=== PATIENT | female | born 1975 | race Asian ===

== ENCOUNTER 2020-07-15 07:04 | Inpatient (IN) | payer OTHER ==
[~2020-07-15] VITALS: Ht 160 cm; Wt 63.5 kg
[2020-07-15] MEDS ORDERED: methylPREDNISolone SOD SUCC 125 MG/2 ML VL ONE (08:07)
[2020-07-15] MEDS ORDERED: methylPREDNISolone SOD SUCC 125 MG/2 ML VL IV ONE (08:15)
[2020-07-15 08:46] LABS: Basophils # (auto) 0.1 10 ^3/uL (0-0.2); Basophils % (auto) 0.7 % (0.0-2.0); Eosinophils # (auto) 0.9 10 ^3/uL (0-0.8); Hematocrit 44.7 % (36.0-46.0); Hemoglobin 15.2 g/dL (12.2-16.2); Lymphocytes # (auto) 1.6 10 ^3/uL (0.4-5.4); Mean Corpuscular Hemoglobin 30.1 pg (28.0-32.0); Mean Corpuscular Volume 88.5 fL (80.0-100.0); Monocytes # (auto) 0.8 10 ^3/uL (0-1.3); Monocytes % (auto) 5.8 % (0.0-12.0); Neutrophils # (auto) 9.8 10 ^3/uL (1.6-8.6); Neutrophils % (auto) 74.5 % (37.0-80.0); Nucleated Red Blood Cells % 0.2 %; Platelet Count (auto) 366 10^3/uL (140-450); Red Blood Cells 5.05 10^6/uL (4.0-5.20); Red Cell Distribution Width 12.8 % (11.8-14.3); White Blood Cell 13.2 10^3/uL (4.4-10.8)
[2020-07-15 08:59] LABS: Albumin 4.2 g/dL (3.4-5.0); Calcium 9.3 mg/dL (8.5-10.1); Potassium 3.8 mmol/L (3.5-5.1)
[2020-07-15 09:03] LABS: Bilirubin, Total 0.6 mg/dL (0.2-1.0); Total Protein 9.3 g/dL (6.4-8.2)
[2020-07-15] MEDS ORDERED: ALBUTEROL SULF 2.5 MG/0.5ML(0.5%) NEB SOLN NEB ONE (10:00)
[2020-07-15] MEDS ORDERED: SODIUM CHLORIDE 0.9% 1,000 ML IV ONE ×2 (10:00→13:15)
[2020-07-15] MEDS ORDERED: IPRATROPIUM BROM 0.5 MG/2.5ML INH SOL NEB ONE (10:00)
[2020-07-15] MEDS ORDERED: MORPHINE SULF INJ 2 MG/ML SYRINGE 1ML IV PRN ×2 (13:15)
[2020-07-15] MEDS ORDERED: ACETAMINOPHEN 500 MG TAB PO PRN (13:15)
[2020-07-15] MEDS ORDERED: HYDROcodone-ACET 5/325MG TAB PO PRN (13:15)
[2020-07-15] MEDS ORDERED: ONDANSETRON HCL 4 MG/2 ML VIAL IV PRN (13:15)
[2020-07-15] MEDS ORDERED: NITROGLYCERIN 0.4 MG SL TAB SL PRN (13:15)
[2020-07-15] MEDS: AZITHROMYCIN 500MG/ 250ML 250 ML IV SCH (13:42)
[2020-07-15] MEDS: ALBUTEROL SULF 2.5 MG/0.5ML(0.5%) NEB SOLN NEB SCH ×2 (14:00→20:56)
[2020-07-15] MEDS: IPRATROPIUM BROM 0.5 MG/2.5ML INH SOL NEB SCH ×2 (14:00→20:56)
[2020-07-15 16:00] VITALS: BP 126/69
[2020-07-15 16:30] VITALS: BP 126/69
--- NOTE | 2020-07-15 16:39 | NUR ---
Telemetry admit from ER SHAMEKA DEGROOT admitted to Telemetry unit after SBAR received. Patient oriented to OG CRAIG, RN primary RN, unit, room, bed, and unit policies regarding patient care and visiting hours. Patient now on continuous telemetry monitoring, tele box # 17 and telemetry reading on arrival to unit is ST. Patient placed on bedside oxygen, weighed by bedscale and encouraged to call if they need something. All questions and concerns addressed, patient verbalized understanding. Note:
--- NOTE | 2020-07-15 17:49 | NUR ---
CALLED TO INFORM CHARGE NURSE KISHOR OF PATIENTS NEGATIVE COVID STATUS.
[2020-07-15] MEDS: BUDESONIDE (INHALATION) 0.5 MG/2 ML NEB NEB SCH (20:56)
[2020-07-15] MEDS: methylPREDNISolone SOD SUCC 125 MG/2 ML VL IV SCH (21:11)
[2020-07-15 22:00] VITALS: BP 114/65
--- NOTE | 2020-07-15 23:15 | NUR ---
pt transferred to Rm 288B. Endorsed care to AMANDEEP Stone.
--- NOTE | 2020-07-15 23:30 | NUR ---
Received patient from [facility] per wheelchair, alert/oriented, respirations even and unlabored at 3 Lpm/NC. Updated on POC, and to call as needed, patient verbalized understanding. Call light within reach, will continue to monitor
[2020-07-16] MEDS: IPRATROPIUM BROM 0.5 MG/2.5ML INH SOL NEB SCH ×6 (02:10→22:28)
[2020-07-16] MEDS: ALBUTEROL SULF 2.5 MG/0.5ML(0.5%) NEB SOLN NEB SCH ×3 (02:10→10:42)
[2020-07-16 05:00] VITALS: BP 101/57
--- NOTE | 2020-07-16 07:30 | NUR ---
Opening Shift Note Assumed care of patient, she is sitting up in bed eating breakfast. She is alert and oriented x 4. Respirations are even and non labored on 2L NC. No S/S of distress/SOB or pain. Bed is in the lowest and locked position with side rails up x 2 and call light within reach. Patient has not ambulated as of yet but she has normal strength in the hands and feet. Instructed on POC and to call for assist PRN, will continue to monitor for changes Q1hr and PRN.
[2020-07-16 09:23] VITALS: BP 107/63
[2020-07-16] MEDS: FAMOTIDINE 20 MG TAB PO SCH (10:21)
[2020-07-16] MEDS: methylPREDNISolone SOD SUCC 125 MG/2 ML VL IV SCH ×2 (10:21→21:51)
[2020-07-16] MEDS: AZITHROMYCIN 500MG/ 250ML 250 ML IV SCH (10:21)
[2020-07-16] MEDS: BUDESONIDE (INHALATION) 0.5 MG/2 ML NEB NEB SCH ×2 (10:42→22:28)
[2020-07-16] MEDS ORDERED: PATIENTS OWN MEDICATION (XOPENEX 0.63 MG) NEB SCH (11:45)
[2020-07-16] MEDS ORDERED: LORazepam 0.5 MG TAB PO PRN (11:45)
[2020-07-16 13:00] VITALS: BP 118/55
[2020-07-16] MEDS ORDERED: ENOXAPARIN SOD 40 MG/0.4 ML SYRINGE SC ONE (14:15)
[2020-07-16] MEDS ORDERED: IOHEXOL 350 MG/ML 100ML IJ ONE (15:04)
[2020-07-16] MEDS: LEVALBUTEROL HCL 1.25 MG/3 ML NEB NEB SCH ×3 (15:28→22:28)
--- NOTE | 2020-07-16 19:40 | NUR ---
Opening Shift Note Assumed care of patient, awake and alert. No S/S of distress/SOB or pain. Updated on POC and to call for assist PRN, patient verbalized understanding. Safety precaution in place, call light within reach, will continue to monitor for changes Q1hr and PRN.
[2020-07-16] MEDS: DOXYCYCLINE 100 MG TAB/CAP PO SCH (21:51)
[2020-07-16 23:59] VITALS: BP 106/49
[2020-07-17] MEDS: IPRATROPIUM BROM 0.5 MG/2.5ML INH SOL NEB SCH ×5 (01:44→14:21)
[2020-07-17] MEDS: LEVALBUTEROL HCL 1.25 MG/3 ML NEB NEB SCH ×5 (01:44→14:21)
[2020-07-17 05:31] VITALS: BP 110/61
[2020-07-17 06:17] LABS: Basophils # (auto) 0 10 ^3/uL (0-0.2); Eosinophils # (auto) 0 10 ^3/uL (0-0.8); Hematocrit 37.6 % (36.0-46.0); Lymphocytes % (auto) 7.1 % (10.0-50.0); Mean Corpuscular Hemoglobin 30.5 pg (28.0-32.0); Mean Corpuscular Hgb Conc. 34.5 g/dL (32.0-36.0); Mean Corpuscular Volume 88.4 fL (80.0-100.0); Monocytes # (auto) 0.4 10 ^3/uL (0-1.3); Monocytes % (auto) 2.6 % (0.0-12.0); Neutrophils # (auto) 13.3 10 ^3/uL (1.6-8.6); Neutrophils % (auto) 90.3 % (37.0-80.0); Platelet Count (auto) 324 10^3/uL (140-450); Red Blood Cells 4.25 10^6/uL (4.0-5.20); Red Cell Distribution Width 12.9 % (11.8-14.3); White Blood Cell 14.7 10^3/uL (4.4-10.8)
[2020-07-17 06:28] LABS: Potassium 4.3 mmol/L (3.5-5.1)
[2020-07-17 06:33] LABS: BUN/Creatinine Ratio 22.7; Calcium 8.6 mg/dL (8.5-10.1)
[2020-07-17 08:30] VITALS: BP 109/58
[2020-07-17] MEDS ORDERED: ENOXAPARIN SOD 40 MG/0.4 ML SYRINGE SC SCH (10:00)
--- NOTE | 2020-07-17 10:00 | NUR ---
Weaned patient off of oxygen patien tO2 sat 98-100% on Room air
[2020-07-17] MEDS ORDERED: FLUT110A INH (10:02)
[2020-07-17] MEDS ORDERED: PRED20TA2 PO (10:02)
[2020-07-17] MEDS ORDERED: DOX100T PO (10:02)
[2020-07-17] MEDS ORDERED: FAMO20TA10 PO (10:02)
[2020-07-17] MEDS ORDERED: ALBUAER3 IN (10:02)
[2020-07-17] MEDS: FAMOTIDINE 20 MG TAB PO SCH (10:11)
[2020-07-17] MEDS: methylPREDNISolone SOD SUCC 125 MG/2 ML VL IV SCH (10:11)
[2020-07-17] MEDS: DOXYCYCLINE 100 MG TAB/CAP PO SCH (10:11)
[2020-07-17] MEDS: BUDESONIDE (INHALATION) 0.5 MG/2 ML NEB NEB SCH (10:52)
--- NOTE | 2020-07-17 12:00 | NUR ---
Spoke to she said patient will be discharged today .[facility]. I also let her know that one of the medication is too expensive for patient. aware. Patient said that she thinks her brother can buy it for her.
[2020-07-17 13:00] VITALS: BP 107/58
--- NOTE | 2020-07-17 14:30 | NUR ---
Discharge instructions given as ordered. Encourage to follow up with Primary Care Provider Dr.Kelly Kauffman [phone] located at [address] [address]. Patient wanted to call herself to make own appointment. Patient was instructed to follow up in 1 week with the primary care provider, patient verbalized understanding. Discharge instructions a education given to patient, all questions and concerns addressed.Patient picked [facility] at [facility]. Medication reconciliation form completed and copy given to patient. IV removed with catheter intact, pressure dressing applied. Telemetry unit returned to ICU. All personal belongings accompanied by staff and patient.Patient awaiting for family bean picker. No distress noted at time of departure.
== END 2020-07-17 14:00 | disposition home or self-care (01) | DRG 189 ==
LOC: ER 07:04 → TELE 07:05 → TELE-EAST 15:58 → TELE-WESTW 23:23
PROVIDERS: ADMIT Nurse Practitioner Acute Care; ATTEND Internal Medicine
DX: J96.00 Acute respiratory failure, unspecified whether with hypoxia or hypercapnia (principal); J45.901 Unspecified asthma with (acute) exacerbation; J20.9 Acute bronchitis, unspecified; Z20.828 Contact with and (suspected) exposure to other viral communicable diseases
CPT/HCPCS: 36415; 71045; 71275; 80048; 80053; 83605; 84702; 85025; 85379; 87040; 87426; 94640; 96361; 96365; 96375; G0378